=== PATIENT | male | born 2000 | race Caucasian/White ===

== ENCOUNTER → 2022-03-23 | Outpatient (CLI) | payer OTHER ==
[~2022-03-23] MED LIST: MAGN400C2 PO; VITMTA PO
== END ==
LOC: M LABSMTC 11:06
PROVIDERS: ATTEND Anesthesiology
DX: Z01.812 Encounter for preprocedural laboratory examination (principal); Z11.52 Encounter for screening for COVID-19

== ENCOUNTER 2022-03-26 09:55 | Day surgery (SDC) | payer OTHER ==
[~2022-03-26] VITALS: Ht 190.5 cm; Wt 96.2 kg
[~2022-03-26 09:55] MED LIST changes: +NS 1,000 ML IV ONE
[2022-03-26] MEDS ORDERED: propofoL 200 MG/20 ML VIAL As Ordered ONE ×3 (10:57→11:44)
[2022-03-26] MEDS ORDERED: LIDOCAINE 2% INJ 100 MG/5 ML SYRINGE As Ordered ONE (10:57)
[2022-03-26] MEDS ORDERED: fentaNYL 100 MCG/2 ML INJECTION As Ordered ONE (11:28)
[2022-03-26] MEDS ORDERED: MIDAZOLAM INJ 2MG/2ML VIAL As Ordered ONE (11:43)
[2022-03-26 12:50] VITALS: BP 122/58
== END 2022-03-26 13:04 | disposition home or self-care (01) ==
LOC: M OPP 09:55
PROVIDERS: ATTEND Internal Medicine Gastroenterology
DX: K64.4 Residual hemorrhoidal skin tags (principal); K64.8 Other hemorrhoids; K29.70 Gastritis, unspecified, without bleeding; Z88.1 Allergy status to other antibiotic agents; Z87.891 Personal history of nicotine dependence; Z86.19 Personal history of other infectious and parasitic diseases
CPT/HCPCS: 43239; 45380; 88305; J2250; J3010

== ENCOUNTER → 2022-04-16 | Outpatient (REF) | payer OTHER ==
[~2022-04-16] MED LIST changes: -NS 1,000 ML IV ONE
[2022-04-16 12:47] LABS: BASO % 0.2 % (0.0-1.0); EOS % 0.9 % (0.0-3.0); HEMATOCRIT 42.3 % (42.0-52.0); HEMOGLOBIN 14.3 g/dl (13.5-17.5); LYMPH # 1.8 10^3/uL (1.5-5.0); MEAN CORPUSCULAR HEMOGLOBIN 30.4 pg (27.0-33.0); MEAN CORPUSCULAR HGB CONC 33.8 g/dl (32.0-36.5); MEAN CORPUSCULAR VOLUME 89.8 fl (80.0-96.0); MONO # 0.4 10^3/uL (0.0-0.8); MONO % 8.2 % (2.0-8.0); NEUTROPHILS # 2.3 10^3/uL (1.5-8.5); NEUTROPHILS % 50.5 % (36.0-66.0); PLATELET COUNT, AUTOMATED 267 10^3/uL (150-450); RED BLOOD COUNT 4.71 10^6/uL (4.30-6.10); WHITE BLOOD COUNT 4.5 10^3/uL (4.0-10.0)
[2022-04-16 12:57] LABS: ERYTHROCYTE SEDIMENTATION RATE < 1 mm/hr (0-15)
[2022-04-16 13:05] LABS: ALBUMIN 4.3 G/DL (3.2-5.2); ALKALINE PHOSPHATASE 59 U/L (46-116); ALT/SGPT 21 U/L (7.0-40); AST/SGOT 19 U/L (<34); BILIRUBIN,TOTAL 1.3 MG/DL (0.3-1.2); BLOOD UREA NITROGEN 11 MG/DL (9-23); C REACTIVE PROTEIN QUANTITATIV < 0.40 MG/DL (<1.0); CALCIUM LEVEL 9.3 MG/DL (8.5-10.1); CARBON DIOXIDE LEVEL 28 MMOL/L (20-31); CHLORIDE LEVEL 106 MMOL/L (98-107); CREATININE FOR GFR 1.02 MG/DL (0.70-1.30); GLOMERULAR FILTRATION RATE > 60.0 (>60); GLUCOSE, FASTING 92 MG/DL (60-100); LDH LACTATE DEHYDROGENASE 145 U/L (120-246); SODIUM LEVEL 138 MMOL/L (136-145); TOTAL PROTEIN 6.8 G/DL (5.7-8.2)
[2022-04-16 13:13] LABS: CPK CREATINE PHOSPHOKINASE 230 U/L (46-171)
== END ==
LOC: M SFHCRHEU 08:53
PROVIDERS: ATTEND Internal Medicine Rheumatology
DX: M35.3 Polymyalgia rheumatica (principal); R21 Rash and other nonspecific skin eruption; R53.83 Other fatigue

== ENCOUNTER → 2022-06-18 | Outpatient (CLI) | payer OTHER ==
[2022-06-18 11:42] LABS: RHEUMATOID FACTOR QUANT 4.7 IU/ML (<14)
[2022-06-18 11:43] LABS: THYROID STIMULATING HORMONE 1.063 uIU/ML (0.55-4.78)
[2022-06-18 11:45] LABS: FOLATE 15.6 NG/ML (>5.4)
[2022-06-18 11:46] LABS: FREE T4 1.07 NG/DL (0.89-1.76)
[2022-06-18 12:01] LABS: HEMOGLOBIN A1c 5.3 % (4.0-6.0)
[2022-06-25 23:07] LABS: ANTI DOUBLE STRAND-DNA AB 1 IU/mL (0-9); ANTI DS-DNA AB Negative (Negative); ANTINUCLEAR ANTIBODIES DIRECT Positive (Negative); IMMUNOTYPING SERUM IGA SO 193 mg/dL (90-386); IMMUNOTYPING SERUM IGM SO 76 mg/dL (20-172); IgG P18 AB Present (.); IgG P23 AB Absent (.); IgG P28 AB Absent (.); IgG P30 AB Absent (.); IgG P39 AB Present (.); IgG P41 AB Present (.); IgG P45 AB Present (.); IgG P66 AB Absent (.); IgG P93 AB Absent (.); IgM P23 AB Present (.); IgM P39 AB Absent (.); IgM P41 AB Absent (.); LYME IgG WB INTERPRETATION Positive (.); LYME IgM WB INTERPRETATION Negative (.); RNP ANTIBODIES >8.0 AI (0.0-0.9); SJOGREN'S ANTI SS-A <0.2 AI (0.0-0.9); SJOGREN'S ANTI SS-B <0.2 AI (0.0-0.9); SMITH ANTIBODIES <0.2 AI (0.0-0.9); VITAMIN B1 LEVEL WHOLE BLOOD 120.8 nmol/L (66.5-200.0); VITAMIN B6,PYRIDOXAL PHOSPHATE 10.4 ug/L (3.4-65.2); VITAMIN E(ALPHA TOCOPHEROL) 9.1 mg/L (5.9-19.4); VITAMIN E(GAMMA TOCOPHEROL) 1.3 mg/L (0.7-4.9)
== END ==
LOC: M LAB 09:51
PROVIDERS: ATTEND Psychiatry & Neurology Neurology
DX: E11.42 Type 2 diabetes mellitus with diabetic polyneuropathy (principal); E07.9 Disorder of thyroid, unspecified; M35.00 Sjogren syndrome, unspecified; Z11.8 Encounter for screening for other infectious and parasitic diseases

== ENCOUNTER → 2022-07-28 | Outpatient (CLI) | payer OTHER | LOC: M RAD 14:45 | PROVIDERS: ATTEND Internal Medicine Rheumatology | DX: M35.3 Polymyalgia rheumatica (principal); R21 Rash and other nonspecific skin eruption; R53.83 Other fatigue ==

== ENCOUNTER 2022-10-06 13:36 | Emergency (ER) | payer OTHER ==
[~2022-10-06] VITALS: Ht 188 cm; Wt 93.0 kg
[2022-10-06 13:38] VITALS: TEMP 98.2
[2022-10-06] MEDS ORDERED: SERT50TA29 (14:34)
[2022-10-06] MEDS ORDERED: GABA-1171 (14:34)
[2022-10-06] MEDS ORDERED: BOOSTRIX VACCINE (TETANUS/DIPHTH/ACEL. PERTUSSIS) 0.5ML SYR IM ONE (16:45)
[2022-10-06 18:47] VITALS: BP 144/96; O2SAT 100
[2022-10-06] MEDS ORDERED: BACITRACIN OINTMENT 30GM TUBE TOP ONE (19:00)
[2022-10-06] MEDS ORDERED: BOOSTRIX VACCINE (TETANUS/DIPHTH/ACEL. PERTUSSIS) 0.5ML SYR IM.IMMUN ONE (19:00)
== END 2022-10-06 19:32 | disposition home or self-care (01) ==
LOC: M ED 13:36
DX: S40.811A Abrasion of right upper arm, initial encounter (principal); W29.8XXA Contact with other powered hand tools and household machinery, initial encounter; Y92.89 Other specified places as the place of occurrence of the external cause; Y93.89 Activity, other specified; Y99.8 Other external cause status; Z79.899 Other long term (current) drug therapy

== ENCOUNTER 2023-11-13 17:50 | Emergency (ER) | payer OTHER ==
[~2023-11-13] VITALS: Ht 188 cm; Wt 97.7 kg
[~2023-11-13 17:50] MED LIST changes: +GABA-1171; +SERT50TA29
[2023-11-13 17:58] VITALS: TEMP 98.2
[2023-11-13 18:25] LABS: BASO % 0.3 % (0.0-1.0); EOS # 0.1 10^3/uL (0.0-0.5); EOS % 1.1 % (0.0-3.0); HEMATOCRIT 34.7 % (42.0-52.0); HEMOGLOBIN 12.2 g/dl (13.5-17.5); LYMPH # 2.5 10^3/uL (1.5-5.0); MEAN CORPUSCULAR HEMOGLOBIN 31.4 pg (27.0-33.0); MEAN CORPUSCULAR HGB CONC 35.2 g/dl (32.0-36.5); MEAN CORPUSCULAR VOLUME 89.4 fl (80.0-96.0); MONO # 0.5 10^3/uL (0.0-0.8); MONO % 7.4 % (2.0-8.0); NEUTROPHILS # 3.3 10^3/uL (1.5-8.5); PLATELET COUNT, AUTOMATED 209 10^3/uL (150-450); RED BLOOD COUNT 3.88 10^6/uL (4.30-6.10); WHITE BLOOD COUNT 6.4 10^3/uL (4.0-10.0)
[2023-11-13 18:47] LABS: BLOOD UREA NITROGEN 20 MG/DL (9-23); CALCIUM LEVEL 8.6 MG/DL (8.5-10.1); CARBON DIOXIDE LEVEL 28 MMOL/L (20-31); CHLORIDE LEVEL 108 MMOL/L (98-107); CK-MB VALUE MASS < 1.0 NG/ML (<3.6); CPK CREATINE PHOSPHOKINASE 222 U/L (46-171); CREATININE FOR GFR 0.98 MG/DL (0.70-1.30); GLOMERULAR FILTRATION RATE > 60.0 (>60); GLUCOSE, FASTING 99 MG/DL (60-100); MAGNESIUM LEVEL 2.1 MG/DL (1.8-2.4); MB/CK RELATIVE INDEX 0.45 (< OR =4); SODIUM LEVEL 140 MMOL/L (136-145)
[2023-11-13 18:49] LABS: THYROID STIMULATING HORMONE 1.274 uIU/ML (0.55-4.78)
[2023-11-13 19:45] VITALS: BP 125/58
[2023-11-13] MEDS ORDERED: HOLTER MONITOR XX (21:08)
[2023-11-13 21:30] VITALS: O2SAT 96
== END 2023-11-13 21:37 | disposition home or self-care (01) ==
LOC: M ED 17:50 → EDBD 17:50 → M ED 21:37
DX: R00.2 Palpitations (principal); R22.31 Localized swelling, mass and lump, right upper limb; A69.20 Lyme disease, unspecified; Z79.899 Other long term (current) drug therapy; Z88.0 Allergy status to penicillin